=== PATIENT | male | born 1995 | race Caucasian/White ===

== ENCOUNTER 2018-04-04 15:03 | Emergency (ER) | payer MEDICAID, OTHER ==
[~2018-04-04] VITALS: Ht 162.6 cm; Wt 76.2 kg
[2018-04-04 15:08] VITALS: BP 143/98
--- NOTE | 2018-04-04 15:08 | NUR ---
PT AMBULATES TO BED 2
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
--- NOTE | 2018-04-04 15:20 | NUR ---
Patient being evaluated by physician at bedside.
--- NOTE | 2018-04-04 15:27 | NUR ---
Note seymour in EDM - 04/04/18 at 1528 by MEDID Patient discharged with v/s stable. Written and verbal after care instructions given and explained. Patient verbalized understanding. Ambulatory with steady gait. All questions addressed prior to discharge. Advised to follow up with PMD.
[2018-04-04 16:35] VITALS: BP 135/82
== END 2018-04-04 16:35 | disposition home or self-care (01) ==
LOC: MED 15:03
DX: H92.02 Otalgia, left ear (principal)
CPT/HCPCS: 99282; 99284